=== PATIENT | female | born 1965 | race Caucasian/White ===

== ENCOUNTER 2017-04-05 08:46 | Outpatient (CLI) | payer OTHER ==
[2017-04-05 11:49] LABS: BASOPHILS # (AUTO) 0.1 10^3/uL (0.0-0.1); BASOPHILS % (AUTO) 0.9 %; EOSINOPHILS # (AUTO) 0.2 10^3/uL (0.0-0.7); EOSINOPHILS % (AUTO) 3.8 %; HCT - HEMATOCRIT 47.3 % (37.0-47.0); HGB - HEMOGLOBIN 16.6 g/dL (12.0-16.0); LYMPHOCYTES # (AUTO) 1.5 10^3/uL (1.5-3.5); LYMPHOCYTES % (AUTO) 23.8 %; MEAN CORPUSCULAR HGB CONC 35.2 g/dL (32.0-36.0); MEAN CORPUSCULAR VOLUME 93.9 fL (81.0-99.0); MEAN PLATELET VOLUME 10.4 fL (7.9-10.8); MONOCYTES # (AUTO) 0.5 10^3/uL (0.0-1.0); MONOCYTES % (AUTO) 7.6 %; NEUTROPHILS % (AUTO) 63.9 %; NUCLEATED RED BLOOD CELLS AUTO 0.1 /100WBC; RED BLOOD COUNT 5.04 10^6/uL (4.20-5.40); RED CELL DISTRIBUTION WIDTH 14.2 % (12.0-15.0); UNCORRECTED WHITE BLOOD COUNT 6.3 x10^3/uL; WHITE BLOOD COUNT 6.3 x10^3/uL (4.8-10.8)
[2017-04-05 12:01] LABS: HEMOGLOBIN A1C 0.7 g/dL
[2017-04-05 12:05] LABS: ALBUMIN/GLOBULIN RATIO 1.2 (1.0-2.2); BILIRUBIN,TOTAL 1.2 mg/dL (0.2-1.0); BUN - BLOOD UREA NITROGEN 9 mg/dL (6-20); CALCIUM 9.3 mg/dL (8.5-10.3); CARBON DIOXIDE - CO2 28 mmol/L (21-32); CHLORIDE 101 mmol/L (101-111); CHOL/HDL RATIO 6.1 (<4.4); CHOLESTEROL 227 mg/dL; CREATININE 0.3 mg/dL (0.4-1.0); GFR - MDRD 234 (>89); GLUCOSE 116 mg/dL (70-100); HDL CHOLESTEROL 37 mg/dL; LDL/HDL RATIO 4.4 (<4.4); POTASSIUM 3.4 mmol/L (3.5-5.0); SODIUM 138 mmol/L (135-145); TOTAL PROTEIN 7.6 g/dL (6.7-8.2); TRIGLYCERIDES 129 mg/dL; VLDL CHOLESTEROL 26 mg/dL
== END 2017-04-05 08:47 | disposition home or self-care (01) ==
LOC: LAB.F 08:46
PROVIDERS: ATTEND Physician Assistant Medical
DX: E87.6 Hypokalemia (principal); E78.5 Hyperlipidemia, unspecified; E11.9 Type 2 diabetes mellitus without complications; R79.1 Abnormal coagulation profile
CPT/HCPCS: 36415; 80053; 80061; 83036; 85025

== ENCOUNTER 2017-09-27 10:46 | Outpatient (CLI) | payer OTHER ==
[2017-09-27 18:10] LABS: BASOPHILS % (AUTO) 1.1 %; HCT - HEMATOCRIT 56.7 % (37.0-47.0); HGB - HEMOGLOBIN 19.1 g/dL (12.0-16.0); LYMPHOCYTES % (AUTO) 19.9 %; MEAN CORPUSCULAR HEMOGLOBIN 33.2 pg (27.0-31.0); MEAN CORPUSCULAR HGB CONC 33.7 g/dL (32.0-36.0); MEAN CORPUSCULAR VOLUME 98.6 fL (81.0-99.0); MEAN PLATELET VOLUME 10.1 fL (7.9-10.8); MONOCYTES % (AUTO) 8.9 %; NEUTROPHILS % (AUTO) 67.1 %; RED BLOOD COUNT 5.76 10^6/uL (4.20-5.40); RED CELL DISTRIBUTION WIDTH 15.2 % (12.0-15.0); UNCORRECTED WHITE BLOOD COUNT 8.2 x10^3/uL; WHITE BLOOD COUNT 8.2 x10^3/uL (4.8-10.8)
[2017-09-27 18:35] LABS: ALBUMIN/GLOBULIN RATIO 1.2 (1.0-2.2); BILIRUBIN,TOTAL 1.7 mg/dL (0.2-1.0); BUN - BLOOD UREA NITROGEN 10 mg/dL (6-20); CALCIUM 9.9 mg/dL (8.5-10.3); CARBON DIOXIDE - CO2 27 mmol/L (21-32); CHLORIDE 99 mmol/L (101-111); CHOLESTEROL 228 mg/dL; CREATININE 0.3 mg/dL (0.4-1.0); GFR - MDRD 234 (>89); GLUCOSE 90 mg/dL (70-100); HDL CHOLESTEROL 38 mg/dL; LDL/HDL RATIO 4.2 (<4.4); POTASSIUM 3.7 mmol/L (3.5-5.0); SODIUM 137 mmol/L (135-145); TRIGLYCERIDES 144 mg/dL; VLDL CHOLESTEROL 29 mg/dL
[2017-09-27 19:11] LABS: HEMOGLOBIN A1C 0.75 g/dL
[2017-09-27 20:29] LABS: PLATELET ESTIMATE, MANUAL NORMAL (130-450,000) (NORMAL); PLATELET MORPHOLOGY 1+ GIANT PLATELETS (NORMAL)
[2017-09-27 20:31] LABS: NP AUTO DIFFERENTIAL? NO; NP MAN DIFFERENTIAL? YES
== END 2017-09-27 10:47 | disposition home or self-care (01) ==
LOC: LAB.F 10:46
PROVIDERS: ATTEND Physician Assistant Medical
DX: Z00.00 Encounter for general adult medical examination without abnormal findings (principal); E11.9 Type 2 diabetes mellitus without complications
CPT/HCPCS: 36415; 80053; 80061; 83036; 84443; 85025

== ENCOUNTER 2017-10-11 08:09 | Outpatient (CLI) | payer OTHER ==
--- NOTE | 2017-10-11 14:30 | DEXA Report ---
DEXA SCAN: 10/11/2017 CLINICAL INDICATION: Postmenopausal. TECHNIQUE: Dual energy x-ray absorptiometry (DXA) was performed on a [employer] system. Regions measured are the AP spine, femoral neck, and, if needed, forearm. COMPARISON: None. In accordance with the International Society for Clinical Densitometry (ISCD) guidelines, data from previous exams may be reanalyzed using current recommendations and techniques. This is done to allow a more accurate basis for comparison with the current study. FINDINGS LUMBAR SPINE DATA: REGION BMD (g/cm/cm) T-SCORE Z-SCORE L1 1.010 -1.0 -1.5 L2 1.105 -0.8 -1.3 L3 1.113 -0.7 -1.2 L4 0.936 -2.2 -2.7 TOTAL L1-L4 1.035 -1.2 -1.7 NOTE: All evaluable vertebrae are used for classification. HIP DATA: REGION BMD (g/cm/cm) T-SCORE Z-SCORE Neck 1.000 -0.3 -0.1 TOTAL 1.049 0.3 0.1 NOTE: The femoral neck or total proximal femur, whichever is lowest, is used for classification. IMPRESSION THE WHO CLASSIFICATION BASED ON THE INTERNATIONAL REFERENCE STANDARD: OSTEOPENIA. FRACTURE RISK: INCREASED. RECOMMENDATION: Patients with diagnosis of osteoporosis or osteopenia should have regular bone mineral density assessment. For those eligible for Medicare, routine testing is allowed once every 2 years. Testing frequency can be increased for patients who have rapidly progressing disease or for those who are receiving medical therapy to restore bone mass. COMMENT: World Health Organization (WHO) definitions for osteoporosis and osteopenia: NORMAL BMD: T-score at -1.0 or higher, fracture risk is low. OSTEOPENIA BMD: T-score between -1.0 and -2.5, fracture risk is increased. OSTEOPOROSIS BMD: T-score at -2.5 or lower, fracture risk high. National Osteoporosis Foundation recommends: 1. Obtain adequate dietary calcium (at least 1200 mg per day) and vitamin D (400 -800 international units per day). 2. Participate, as appropriate, in regular weightbearing and muscle- strengthening exercise. 3. Avoid tobacco use and reduce alcohol and caffeine intake. 4. For more detailed information see the website at www.NOF.org. MTDD
== END 2017-10-11 08:10 | disposition home or self-care (01) ==
LOC: DI 08:09
PROVIDERS: ATTEND Physician Assistant Medical
DX: Z00.00 Encounter for general adult medical examination without abnormal findings (principal); M85.88 Other specified disorders of bone density and structure, other site; Z78.0 Asymptomatic menopausal state
CPT/HCPCS: 77080

== ENCOUNTER 2018-02-09 09:26 | Outpatient (CLI) | payer OTHER ==
[2018-02-09 17:48] LABS: ALBUMIN 4.4 g/dL (3.2-5.5); ALBUMIN/GLOBULIN RATIO 1.3 (1.0-2.2); BILIRUBIN,TOTAL 1.2 mg/dL (0.2-1.0); CALCIUM 9.3 mg/dL (8.5-10.3); CREATININE 0.3 mg/dL (0.4-1.0); TOTAL PROTEIN 7.8 g/dL (6.7-8.2)
== END 2018-02-09 09:27 | disposition home or self-care (01) ==
LOC: LAB.F 09:26
PROVIDERS: ATTEND Physician Assistant Medical
DX: R94.5 Abnormal results of liver function studies (principal)
CPT/HCPCS: 36415; 80053

== ENCOUNTER 2019-03-20 07:43 | Outpatient (CLI) | payer OTHER ==
[2019-03-20 10:13] LABS: BASOPHILS # (AUTO) 0.1 10^3/uL (0.0-0.1); EOSINOPHILS # (AUTO) 0.2 10^3/uL (0.0-0.7); EOSINOPHILS % (AUTO) 3.3 %; HGB - HEMOGLOBIN 17.3 g/dL (12.0-16.0); LYMPHOCYTES # (AUTO) 1.3 10^3/uL (1.5-3.5); LYMPHOCYTES % (AUTO) 19.9 %; MEAN CORPUSCULAR HEMOGLOBIN 33.8 pg (27.0-31.0); MEAN CORPUSCULAR HGB CONC 34.2 g/dL (32.0-36.0); MEAN CORPUSCULAR VOLUME 99.1 fL (81.0-99.0); MEAN PLATELET VOLUME 10.6 fL (7.9-10.8); MONOCYTES # (AUTO) 0.6 10^3/uL (0.0-1.0); MONOCYTES % (AUTO) 9.2 %; NEUTROPHILS # (AUTO) 4.3 10^3/uL (1.5-6.6); NEUTROPHILS % (AUTO) 66.6 %; PLT - PLATELET COUNT 137 10^3/uL (130-450); RED CELL DISTRIBUTION WIDTH 14.5 % (12.0-15.0); WHITE BLOOD COUNT 6.4 x10^3/uL (4.8-10.8)
[2019-03-20 10:31] LABS: PLATELET MORPHOLOGY RARE GIANT PLATELETS (NORMAL)
[2019-03-20 10:42] LABS: CREATININE,URINE 101.9 mg/dL; MICROALBUM/CREATININE RATIO,UR 48.1 ug/mg (<30.0); MICROALBUMIN,URINE 4.9 mg/dL (0-300.0)
[2019-03-20 10:53] LABS: HB2 TOTAL 18.7 g/dL; HEMOGLOBIN A1C 0.67 g/dL; HEMOGLOBIN A1C % 5.4 % (4.6-6.2)
[2019-03-20 10:57] LABS: ALBUMIN 4.1 g/dL (3.2-5.5); ALBUMIN/GLOBULIN RATIO 1.1 (1.0-2.2); ALKALINE PHOSPHATASE 46 IU/L (42-121); ALT ALANINE AMINOTRANSFERASE 38 IU/L (10-60); AST ASPARTATE AMINOTRANSFERASE 37 IU/L (10-42); BILIRUBIN,TOTAL 1.1 mg/dL (0.2-1.0); BUN - BLOOD UREA NITROGEN 9 mg/dL (6-20); CALCIUM 9.3 mg/dL (8.5-10.3); CARBON DIOXIDE - CO2 26 mmol/L (21-32); CHLORIDE 98 mmol/L (101-111); CHOL/HDL RATIO 5.3 (<4.4); CHOLESTEROL 203 mg/dL; CREATININE 0.4 mg/dL (0.4-1.0); GFR - MDRD 166 (>89); GLUCOSE 112 mg/dL (70-100); HDL CHOLESTEROL 38 mg/dL; LDL CHOLESTEROL,CALCULATED 140 mg/dL; LDL/HDL RATIO 3.7 (<4.4); SODIUM 137 mmol/L (135-145); TOTAL PROTEIN 7.8 g/dL (6.7-8.2); VLDL CHOLESTEROL 25 mg/dL
== END 2019-03-20 07:44 | disposition home or self-care (01) ==
LOC: LAB.F 07:43
PROVIDERS: ATTEND Physician Assistant Medical
DX: I10 Essential (primary) hypertension (principal); E78.5 Hyperlipidemia, unspecified; E11.9 Type 2 diabetes mellitus without complications
CPT/HCPCS: 36415; 80053; 80061; 82043; 82570; 83036; 83721; 85025

== ENCOUNTER 2019-10-03 14:01 | Outpatient (CLI) | payer OTHER ==
--- NOTE | 2019-10-04 10:15 | DEXA Report ---
Reason: POSTMENOPAUSAL STATE Procedure Date: 10/03/2019 Accession Number: [id number] / [id number] Procedure: DEX - Dexa Spine and/or Hip CPT Code: Final Report FULL RESULT: EXAM: Dexa Spine and/or Hip DATE: 10/03/2019 2:55 PM CLINICAL HISTORY: POSTMENOPAUSAL STATE TECHNIQUE: Dual energy x-ray absorptiometry (DXA) was performed on a [employer] System. Regions measured are the AP Spine, femoral neck, and if needed forearm. COMPARISON: 10/11/2017. In accordance with the International Society for Clinical Densitometry (ISCD) guidelines, data from previous exams may be reanalyzed using current recommendations and techniques. This is done to allow a more accurate basis for comparison with the current study. FINDINGS: The data for the lumbar spine is as follows: BMD (g/cm/cm) T-SCORE Z-SCORE REGION L1 1.030 -0.8 -1.2 L2 1.029 -1.4 -1.8 L3 0.965 -2.0 -2.3 L4 0.879 -2.7 -3.0 TOTAL 0.973 -1.7 -2.1 NOTE: All evaluable vertebrae are used for classification The data for the hip is as follows: BMD (g/cm/cm) T-SCORE Z-SCORE REGION Neck 0.992 -0.3 -0.1 TOTAL 1.074 0.5 0.3 NOTE: The femoral neck or total proximal femur, whichever is lowest, is used for classification. DXA RESULTS SUMMARY: Spine SCAN DATE AGE BMD CHANGE VS CHANGE VS PREVIOUS PREVIOUS % 10[age]03/2019 54.6 0.973 -0.062* -6.0* 10/11/2017 52.6 1.035 * Denotes significant change at the 95% confidence level. Denotes dissimilar scan types or analysis methods. DXA RESULTS SUMMARY: Hip SCAN DATE AGE BMD CHANGE VS CHANGE VS PREVIOUS PREVIOUS % [birth year][age]03/2019 54.6 1.074 0.025 2.4 10/11/2017 52.6 1.049 * Denotes significant change at the 95% confidence level. Denotes dissimilar scan types or analysis methods. IMPRESSION: THE WHO CLASSIFICATION BASED ON THE INTERNATIONAL REFERENCE STANDARD IS OSTEOPENIA. THE FRACTURE RISK IS INCREASED. RECOMMENDATION: Patients with diagnosis of osteoporosis or osteopenia should have regular bone mineral density assessment. For those eligible for Medicare, routine testing is allowed once every 2 years. Testing frequency can be increased for patients who have rapidly progressing disease or for those who are receiving medical therapy to restore bone mass. COMMENT: World Health Organization (WHO) definitions for osteoporosis and osteopenia: NORMAL BMD: T-score at -1.0 or higher, fracture risk is low OSTEOPENIA BMD: T-score between -1.0 and -2.5, fracture risk is increased. OSTEOPOROSIS BMD: T-score at -2.5 or lower, fracture risk is high. National Osteoporosis Foundation recommends: 1. Obtain adequate dietary calcium (at least 1200 mg per day) and vitamin D (400-800 international units per day). 2. Participate, as appropriate, in regular weightbearing and muscle-strengthening exercise. 3. Avoid tobacco use and reduce alcohol and caffeine intake. 4. For more detailed information see the website at www.NOF.org.
== END 2019-10-03 14:02 | disposition home or self-care (01) ==
LOC: DI 14:01
PROVIDERS: ATTEND Physician Assistant Medical
DX: M85.88 Other specified disorders of bone density and structure, other site (principal)
CPT/HCPCS: 77080

== ENCOUNTER 2019-10-09 08:48 | Outpatient (CLI) | payer OTHER ==
--- NOTE | 2019-10-09 13:39 | Mammography Report ---
Reason: ROUTINE MAMMO Procedure Date: 10/09/2019 Accession Number: [id number] / [id number] Procedure: MGS - Screening Mammo Dig Bilat CPT Code: Final Report FULL RESULT: EXAM: Screening Mammo Dig Bilat DATE: 10/09/2019 9:08 AM CLINICAL HISTORY: The patient is an asymptomatic 54-year-old female. No reported personal or family history of breast cancer. TECHNIQUE: (B) - Bilateral CC and MLO views were obtained. COMPARISON: 10/19/2016, 08/23/2015 and 07/31/2014 PARENCHYMAL PATTERN: (A) - The breasts demonstrate scattered fibroglandular densities bilaterally. FINDINGS: There are no suspicious masses, calcifications, or areas of distortion. IMPRESSION: Negative examination. BI-RADS category 1. RECOMMENDATION: (ANNUAL) - Recommend routine annual screening mammography. BI-RADS CATEGORY: (1) - Negative. STANDARD QUALIFYING STATEMENTS: 1. This examination was not reviewed with the aid of Computer-Aided Detection (CAD). 2. A negative or benign imaging report should not preclude biopsy if clinically suspicious findings are present. 3. Dense breasts may obscure an underlying neoplasm.
== END 2019-10-09 08:49 | disposition home or self-care (01) ==
LOC: DI.S 08:48
PROVIDERS: ATTEND Physician Assistant Medical
DX: Z12.31 Encounter for screening mammogram for malignant neoplasm of breast (principal)
CPT/HCPCS: 77067

== ENCOUNTER 2020-01-09 10:40 | Outpatient (CLI) | payer OTHER ==
--- NOTE | 2020-01-10 10:55 | XRAY Report ---
Reason: SCIATICA Procedure Date: 01/09/2020 Accession Number: [id number] / [id number] Procedure: XR - Lumbar Spine Complete CPT Code: Final Report FULL RESULT: EXAM: LUMBOSACRAL SPINE RADIOGRAPHY EXAM DATE: 01/09/2020 11:04 AM. CLINICAL HISTORY: Sciatica. COMPARISONS: None. TECHNIQUE: 4 views. FINDINGS: Alignment: 1 cm L5 anterolisthesis. No significant scoliotic curvature. Bones: Five [id number] lumbar vertebral bodies are present. Chronic distracted L5 pars defects bilaterally. No additional evidence of fracture. Disks: Mild disk narrowing in the lower thoracic and upper lumbar spine. Moderate to severe disk narrowing at L5-S1. Facets: Moderate facet arthropathy from L3 to S1 bilaterally. Sacroiliac Joints: Unremarkable. Soft Tissues: Normal. The visualized bowel gas pattern is normal. IMPRESSION: 1. Chronic L5 pars defects with 1 cm anterolisthesis and severe degenerative disk disease. 2. Mild degenerative disk disease in the lower thoracic/upper lumbar spine. 3. Moderate lower lumbar facet arthropathy. RADIA
== END 2020-01-09 10:41 | disposition home or self-care (01) ==
LOC: DI 10:40
PROVIDERS: ATTEND Family Medicine
DX: M51.16 Intervertebral disc disorders with radiculopathy, lumbar region (principal); M51.14 Intervertebral disc disorders with radiculopathy, thoracic region
CPT/HCPCS: 72110

== ENCOUNTER 2020-05-01 08:23 | Outpatient (CLI) | payer OTHER ==
[2020-05-01 15:03] LABS: BASOPHILS # (AUTO) 0.1 10^3/uL (0.0-0.1); BASOPHILS % (AUTO) 1.2 %; EOSINOPHILS # (AUTO) 0.2 10^3/uL (0.0-0.7); HGB - HEMOGLOBIN 17.7 g/dL (12.0-16.0); LYMPHOCYTES # (AUTO) 1.2 10^3/uL (1.5-3.5); LYMPHOCYTES % (AUTO) 19.4 %; MEAN CORPUSCULAR HEMOGLOBIN 31.1 pg (27.0-31.0); MEAN CORPUSCULAR HGB CONC 33.6 g/dL (32.0-36.0); MEAN CORPUSCULAR VOLUME 92.5 fL (81.0-99.0); MEAN PLATELET VOLUME 12.3 fL (7.9-10.8); MONOCYTES # (AUTO) 0.6 10^3/uL (0.0-1.0); MONOCYTES % (AUTO) 9.7 %; NEUTROPHILS # (AUTO) 3.9 10^3/uL (1.5-6.6); NEUTROPHILS % (AUTO) 65.4 %; PLT - PLATELET COUNT 141 10^3/uL (130-450); RED CELL DISTRIBUTION WIDTH 13.2 % (12.0-15.0)
[2020-05-01 15:24] LABS: ALBUMIN 4.3 g/dL (3.2-5.5); ALBUMIN/GLOBULIN RATIO 1.2 (1.0-2.2); ALKALINE PHOSPHATASE 48 IU/L (42-121); ALT ALANINE AMINOTRANSFERASE 31 IU/L (10-60); AST ASPARTATE AMINOTRANSFERASE 45 IU/L (10-42); BILIRUBIN,TOTAL 2.2 mg/dL (0.2-1.0); BUN - BLOOD UREA NITROGEN 11 mg/dL (6-20); CARBON DIOXIDE - CO2 31 mmol/L (21-32); CHLORIDE 93 mmol/L (101-111); CHOL/HDL RATIO 4.8 (<4.4); CHOLESTEROL 221 mg/dL; CREATININE 0.4 mg/dL (0.4-1.0); GLUCOSE 135 mg/dL (70-100); HDL CHOLESTEROL 46 mg/dL; LDL CHOLESTEROL,CALCULATED 136 mg/dL; SODIUM 136 mmol/L (135-145); VLDL CHOLESTEROL 39 mg/dL
[2020-05-01 15:35] LABS: CREATININE,URINE 318.9 mg/dL; MICROALBUM/CREATININE RATIO,UR 123.5 ug/mg (<30.0); MICROALBUMIN,URINE 39.4 mg/dL (0-300.0)
[2020-05-01 15:37] LABS: HB2 TOTAL 18.3 g/dL; HEMOGLOBIN A1C 0.7 g/dL; HEMOGLOBIN A1C % 5.7 % (4.6-6.2)
== END 2020-05-01 08:24 | disposition home or self-care (01) ==
LOC: LAB.S 08:23
PROVIDERS: ATTEND Physician Assistant Medical
DX: E11.9 Type 2 diabetes mellitus without complications (principal); E78.5 Hyperlipidemia, unspecified
CPT/HCPCS: 36415; 80053; 80061; 82043; 82570; 83036; 83721; 84443; 85025

== ENCOUNTER 2020-06-28 12:07 | Outpatient (CLI) | payer OTHER | END 2020-06-28 12:08 | disposition home or self-care (01) | LOC: LAB.S 12:07 | PROVIDERS: ATTEND Physician Assistant | DX: E87.6 Hypokalemia (principal) | CPT/HCPCS: 36415; 80048; 83735 ==

== ENCOUNTER 2020-07-04 06:31 | Day surgery (SDC) | payer OTHER ==
[2020-07-04] MEDS ORDERED: LACTATED RINGERS 1,000 ML IV ONE ×2 (06:51→08:17)
[2020-07-04] MEDS ORDERED: fentaNYL 250 MCG/5 ML VIAL IVP ONE (07:52)
[2020-07-04] MEDS ORDERED: MIDAZOLAM 2 MG/2 ML VIAL IVP ONE (07:52)
[2020-07-04 08:38] VITALS: BP 109/64
== END 2020-07-04 06:32 | disposition home or self-care (01) ==
LOC: SDS 06:31
PROVIDERS: ATTEND Surgery
PROC: 0DBN8ZZ Excision of Sigmoid Colon, Via Natural or Artificial Opening Endoscopic (ICD-10-PCS; principal; 2020-07-04 07:30)
DX: Z12.11 Encounter for screening for malignant neoplasm of colon (principal); D12.5 Benign neoplasm of sigmoid colon; K57.30 Diverticulosis of large intestine without perforation or abscess without bleeding; K64.4 Residual hemorrhoidal skin tags; K64.8 Other hemorrhoids; E66.9 Obesity, unspecified; Z68.39 Body mass index [BMI] 39.0-39.9, adult
CPT/HCPCS: 45380; J3010; J7120

== ENCOUNTER 2020-07-12 13:15 | Outpatient (CLI) | payer OTHER ==
[2020-07-12 15:50] LABS: CALCIUM 9.1 mg/dL (8.5-10.3); CREATININE 0.3 mg/dL (0.4-1.0); MAGNESIUM 1.8 mg/dL (1.7-2.8)
== END 2020-07-12 13:16 | disposition home or self-care (01) ==
LOC: LAB.S 13:15
PROVIDERS: ATTEND Physician Assistant
DX: E87.6 Hypokalemia (principal)
CPT/HCPCS: 36415; 80048; 83735

== ENCOUNTER 2020-08-23 10:12 | Outpatient (CLI) | payer OTHER | END 2020-08-23 10:13 | disposition home or self-care (01) | LOC: DI 10:12 | PROVIDERS: ATTEND Physician Assistant | DX: R01.1 Cardiac murmur, unspecified (principal); R00.2 Palpitations | CPT/HCPCS: 93306 ==

== ENCOUNTER 2020-10-08 08:55 | Outpatient (CLI) | payer OTHER ==
[2020-10-08 15:14] LABS: CALCIUM 9.4 mg/dL (8.5-10.3); CREATININE 0.4 mg/dL (0.4-1.0)
== END 2020-10-08 08:56 | disposition home or self-care (01) ==
LOC: LAB.S 08:55
PROVIDERS: ATTEND Physician Assistant
DX: E87.6 Hypokalemia (principal)
CPT/HCPCS: 36415; 80048

== ENCOUNTER 2020-10-17 08:37 | Outpatient (CLI) | payer OTHER ==
[2020-10-17 15:29] LABS: CALCIUM 9.6 mg/dL (8.5-10.3); CREATININE 0.3 mg/dL (0.4-1.0)
== END 2020-10-17 08:38 | disposition home or self-care (01) ==
LOC: LAB.S 08:37
PROVIDERS: ATTEND Physician Assistant
DX: E87.6 Hypokalemia (principal)
CPT/HCPCS: 36415; 80048

== ENCOUNTER 2021-02-25 10:43 | Outpatient (CLI) | payer OTHER ==
[2021-02-25 15:14] LABS: CALCIUM 10.1 mg/dL (8.5-10.3); CREATININE 0.3 mg/dL (0.4-1.0); POTASSIUM 3.3 mmol/L (3.5-5.0)
[2021-02-25 19:45] LABS: ESTIMATED AVERAGE GLUCOSE 120 mg/dL (70-100); HEMOGLOBIN A1c% 5.8 % (4.27-6.07)
== END 2021-02-25 10:44 | disposition home or self-care (01) ==
LOC: LAB.S 10:43
PROVIDERS: ATTEND Physician Assistant
DX: E87.6 Hypokalemia (principal); E11.9 Type 2 diabetes mellitus without complications; I10 Essential (primary) hypertension
CPT/HCPCS: 36415; 80048; 83036